=== PATIENT | female | born 1935 | race Caucasian/White ===

== ENCOUNTER 2016-11-01 11:47 | Inpatient (IN) | payer MEDICARE, MEDICAID ==
[~2016-11-01] VITALS: Ht 167.6 cm; Wt 74.0 kg
[~2016-11-01 11:47] MED LIST: ASPI81CH43 PO; Atorvastatin Calcium PO; CAR250T PO; DOCU60SY2 PO; MET25T PO; ONDA4TAB5 PO; PAR20T PO; Pantoprazole Sodium Sesquihydr PO; ROPI1TAB22 PO; SENN8.6C PO; WARF1TAB36 PO
[2016-11-01] MEDS ORDERED: ONDANSETRON HCL 4 MG/2 ML VIAL IV ONE (12:00)
[2016-11-01 12:42] LABS: Basophils # (auto) 0.1 uL; Basophils % (auto) 0.6 % (0.0-2.0); DEFINITIVE VIEW TRANSMISSION; Eosinophils # (auto) 0 uL; Eosinophils % (auto) 0.4 % (0.0-7.0); Hematocrit 25.5 % (36.0-46.0); Hemoglobin 8.1 g/dL (12.2-16.2); Lymphocytes # (auto) 0.5 uL; Lymphocytes % (auto) 6.4 % (10.0-50.0); Mean Corpuscular Hemoglobin 23.5 pg (28.0-32.0); Mean Corpuscular Hgb Conc. 31.8 g/dL (32.0-36.0); Mean Corpuscular Volume 73.8 fL (80.0-100.0); Mean Platelet Volume 9.7 fL (7.4-10.4); Monocytes # (auto) 0.4 uL; Monocytes % (auto) 4.7 % (0.0-12.0); Neutrophils # (auto) 7.5 uL; Neutrophils % (auto) 87.9 % (37.0-80.0); Platelet Count (auto) 166 10^3/uL (140-450); Red Cell Distribution Width 18.3 % (11.6-16.0); White Blood Cell 8.6 10^3/uL (4.4-10.8)
[2016-11-01 12:57] LABS: INR 1.93 (0.9-1.15); Partial Thromboplastin Time 43.2 sec (22.64-33.71); Prothrombin Time 19.9 sec (9.37-12.3)
[2016-11-01 13:00] LABS: Albumin 3.7 g/dL (3.4-5.0); BUN/Creatinine Ratio 24.1; Calcium 8.4 mg/dL (8.5-10.1); Potassium 3.8 mmol/L (3.5-5.1)
[2016-11-01] MEDS ORDERED: PROMETHAZINE HCL 25 MG/ML 1ML IV ONE (13:00)
[2016-11-01 13:02] LABS: Bilirubin, Total 0.7 mg/dL (0.2-1.0); Total Protein 9.2 g/dL (6.4-8.2)
[2016-11-01 13:51] LABS: Urine Bilirubin Negative (Negative); Urine Blood 2+ /uL (Negative); Urine Color Yellow (Yellow); Urine Glucose Normal (Normal); Urine Ketone TRACE (Negative); Urine Mucus FEW (None Seen); Urine Nitrite POSITIVE (Negative); Urine RBC 4 /hpf (0 - 4); Urine Squamous Epithelial Cell FEW /hpf (<5); Urine Urobilinogen Normal (Negative)
[2016-11-01] MEDS ORDERED: cefTRIAXone 1GM/50ML D5W 50 ML IV ONE (14:00)
[2016-11-01] MEDS ORDERED: SODIUM CHLORIDE 0.9% 1,000 ML IV ONE (15:00)
[2016-11-01] MEDS ORDERED: SODIUM CHLORIDE 0.9% 1,000 ML IV SCH (15:02)
[2016-11-01] MEDS ORDERED: LORazepam 0.5 MG TAB PO PRN (15:15)
[2016-11-01] MEDS ORDERED: MORPHINE SULF INJ 2 MG/ML SYRINGE 1ML IV PRN ×2 (15:15)
[2016-11-01] MEDS ORDERED: NITROGLYCERIN 0.4 MG SL TAB SL PRN (15:15)
[2016-11-01] MEDS ORDERED: PANTOPRAZOLE SODIUM 40 MG/10 ML VIAL IV ONE (15:15)
[2016-11-01] MEDS ORDERED: ACETAMINOPHEN 500 MG TAB PO PRN (15:15)
[2016-11-01] MEDS ORDERED: TEMAZEPAM 15 MG CAP PO PRN (15:15)
[2016-11-01 15:25] LABS: Amylase 50 U/L (25-115)
[2016-11-01] MEDS: PROMETHAZINE HCL 25 MG/ML 1ML IV PRN ×4 (15:30→23:24)
[2016-11-01] MEDS ORDERED: PARoxetine 20 MG TAB PO ONE (15:45)
[2016-11-01 20:51] LABS: Hematocrit 41.8 % (36.0-46.0)
[2016-11-01 20:57] LABS: Hemoglobin 13.3 g/dL (12.2-16.2)
[2016-11-01] MEDS: ROPINIROLE 1 MG PO SCH (22:00)
[2016-11-01] MEDS: CARB PO SCH (22:00)
[2016-11-01] MEDS ORDERED: PATIENTS OWN MEDICATION PO SCH ×2 (22:00)
[2016-11-01] MEDS: DOCUSATE SOD 100 MG CAP PO SCH (22:00)
[2016-11-01] MEDS: LEVODOPA PO SCH (22:00)
[2016-11-01] MEDS ORDERED: DOCUSATE SODIUM 100 MG PO SCH (22:00)
[2016-11-01] MEDS: METOPROLOL TARTRATE 25 MG TAB PO SCH (22:00)
[2016-11-01] MEDS ORDERED: LEVODOPA W/CARB 25/100MG TABLET ONE (23:41)
[2016-11-02 01:00] LABS: Hematocrit 42.1 % (36.0-46.0); Hemoglobin 13.3 g/dL (12.2-16.2)
[2016-11-02 06:31] LABS: Basophils # (auto) 0.1 uL; Basophils % (auto) 0.4 % (0.0-2.0); DEFINITIVE VIEW TRANSMISSION; Eosinophils # (auto) 0.2 uL; Eosinophils % (auto) 1.7 % (0.0-7.0); Hematocrit 42.8 % (36.0-46.0); Hemoglobin 13.5 g/dL (12.2-16.2); Lymphocytes # (auto) 1.3 uL; Lymphocytes % (auto) 10.1 % (10.0-50.0); Mean Corpuscular Hemoglobin 23.5 pg (28.0-32.0); Mean Corpuscular Hgb Conc. 31.5 g/dL (32.0-36.0); Mean Corpuscular Volume 74.6 fL (80.0-100.0); Mean Platelet Volume 9.7 fL (7.4-10.4); Monocytes % (auto) 7.8 % (0.0-12.0); Neutrophils # (auto) 10.6 uL; Platelet Count (auto) 275 10^3/uL (140-450); White Blood Cell 13.2 10^3/uL (4.4-10.8)
[2016-11-02 06:55] LABS: Albumin 3.6 g/dL (3.4-5.0); BUN/Creatinine Ratio 28.6; Bilirubin, Total 0.7 mg/dL (0.2-1.0); Calcium 8.7 mg/dL (8.5-10.1); Total Protein 8.4 g/dL (6.4-8.2)
[2016-11-02] MEDS: LEVODOPA PO SCH ×4 (07:45→22:36)
[2016-11-02] MEDS: CARB PO SCH ×4 (07:45→22:36)
[2016-11-02] MEDS: cefTRIAXone 1GM/50ML D5W 50 ML IV SCH (07:51)
[2016-11-02] MEDS: HYDROcodone-ACET 5/325MG TAB PO PRN (08:38)
[2016-11-02] MEDS: PROMETHAZINE HCL 25 MG/ML 1ML IV PRN (09:45)
[2016-11-02 10:24] VITALS: BP 154/61
[2016-11-02] MEDS: PARoxetine 20 MG TAB PO SCH (11:01)
[2016-11-02] MEDS: DOCUSATE SOD 100 MG CAP PO SCH ×2 (11:02→22:00)
[2016-11-02] MEDS: METOPROLOL TARTRATE 25 MG TAB PO SCH ×2 (11:02→22:36)
[2016-11-02] MEDS: PANTOPRAZOLE 40 MG TAB PO SCH (11:02)
[2016-11-02 12:10] VITALS: BP 149/57
[2016-11-02] MEDS: ONDANSETRON HCL 4 MG/2 ML VIAL IV PRN ×2 (15:38→20:46)
[2016-11-02 17:05] VITALS: BP 164/62
[2016-11-02 22:00] VITALS: BP 126/59
[2016-11-02] MEDS ORDERED: ROPINIROLE PO ONE (22:00)
[2016-11-02] MEDS: ROPINIROLE 1 MG PO SCH (22:00)
[2016-11-03] MEDS: ONDANSETRON HCL 4 MG/2 ML VIAL IV PRN ×6 (01:10→21:28)
[2016-11-03] MEDS: CARB PO SCH ×3 (05:01→21:28)
[2016-11-03] MEDS: LEVODOPA PO SCH ×3 (05:01→21:28)
[2016-11-03 05:39] VITALS: BP 144/68
[2016-11-03 06:16] LABS: Basophils # (auto) 0.1 uL; Basophils % (auto) 0.6 % (0.0-2.0); DEFINITIVE VIEW TRANSMISSION; Eosinophils # (auto) 0.1 uL; Eosinophils % (auto) 0.9 % (0.0-7.0); Hematocrit 41.7 % (36.0-46.0); Hemoglobin 13.2 g/dL (12.2-16.2); Lymphocytes # (auto) 1.3 uL; Lymphocytes % (auto) 9.3 % (10.0-50.0); Mean Corpuscular Hemoglobin 23.5 pg (28.0-32.0); Mean Corpuscular Hgb Conc. 31.6 g/dL (32.0-36.0); Mean Corpuscular Volume 74.5 fL (80.0-100.0); Mean Platelet Volume 10.1 fL (7.4-10.4); Monocytes # (auto) 1.1 uL; Monocytes % (auto) 7.5 % (0.0-12.0); Neutrophils # (auto) 11.7 uL; Neutrophils % (auto) 81.7 % (37.0-80.0); Platelet Count (auto) 253 10^3/uL (140-450); Red Cell Distribution Width 18.2 % (11.6-16.0); White Blood Cell 14.3 10^3/uL (4.4-10.8)
[2016-11-03 06:40] LABS: BUN/Creatinine Ratio 38.6; Magnesium 2.7 mg/dL (1.6-2.6); Potassium 3.6 mmol/L (3.5-5.1)
[2016-11-03 08:00] VITALS: BP 161/76
[2016-11-03] MEDS: DOCUSATE SOD 100 MG CAP PO SCH ×2 (09:11→21:29)
[2016-11-03] MEDS: METOPROLOL TARTRATE 25 MG TAB PO SCH ×2 (09:12→21:29)
[2016-11-03] MEDS: PANTOPRAZOLE 40 MG TAB PO SCH (09:12)
[2016-11-03] MEDS: PARoxetine 20 MG TAB PO SCH (09:12)
[2016-11-03] MEDS: cefTRIAXone 1GM/50ML D5W 50 ML IV SCH (10:00)
[2016-11-03] MEDS ORDERED: METOPROLOL TARTRATE 25 MG TAB PO ONE (11:30)
[2016-11-03 12:30] VITALS: BP 149/63
[2016-11-03 12:53] LABS: Partial Thromboplastin Time 32.6 sec (22.64-33.71); Prothrombin Time 11.9 sec (9.37-12.3)
[2016-11-03 12:56] LABS: INR 1.16 (0.9-1.15)
[2016-11-03] MEDS: HYDROcodone-ACET 5/325MG TAB PO PRN (12:56)
[2016-11-03 16:29] VITALS: BP 159/63
[2016-11-03] MEDS ORDERED: WARFARIN SODIUM 2.5 MG TAB PO ONE (17:00)
[2016-11-03 22:00] VITALS: BP 137/71
[2016-11-03] MEDS ORDERED: ATORVASTATIN 20 MG TAB PO SCH (22:00)
[2016-11-03] MEDS ORDERED: ROPINIROLE 4 MG PO SCH (22:00)
[2016-11-04] MEDS: HYDROcodone-ACET 5/325MG TAB PO PRN (01:43)
[2016-11-04] MEDS: ONDANSETRON HCL 4 MG/2 ML VIAL IV PRN ×4 (01:43→15:46)
[2016-11-04] MEDS ORDERED: ALBUMIN 5% 250 ML IV ONE (02:15)
[2016-11-04 05:17] VITALS: BP 86/46
[2016-11-04 05:56] LABS: Basophils # (auto) 0.1 uL; Basophils % (auto) 1.3 % (0.0-2.0); DEFINITIVE VIEW TRANSMISSION; Eosinophils # (auto) 0.2 uL; Eosinophils % (auto) 2.1 % (0.0-7.0); Hematocrit 38.2 % (36.0-46.0); Hemoglobin 12.1 g/dL (12.2-16.2); Lymphocytes # (auto) 1.2 uL; Mean Corpuscular Hemoglobin 23.4 pg (28.0-32.0); Mean Corpuscular Hgb Conc. 31.7 g/dL (32.0-36.0); Mean Corpuscular Volume 73.6 fL (80.0-100.0); Mean Platelet Volume 9.8 fL (7.4-10.4); Monocytes # (auto) 0.8 uL; Monocytes % (auto) 7.3 % (0.0-12.0); Neutrophils # (auto) 8.9 uL; Neutrophils % (auto) 78.3 % (37.0-80.0); Platelet Count (auto) 198 10^3/uL (140-450); Red Cell Distribution Width 18.2 % (11.6-16.0); White Blood Cell 11.4 10^3/uL (4.4-10.8)
[2016-11-04] MEDS: CARB PO SCH ×2 (06:06→15:46)
[2016-11-04] MEDS: LEVODOPA PO SCH ×2 (06:06→15:46)
[2016-11-04 06:12] LABS: INR 1.11 (0.9-1.15); Partial Thromboplastin Time 27.9 sec (22.64-33.71); Prothrombin Time 11.4 sec (9.37-12.3)
[2016-11-04 08:57] VITALS: BP 130/57
[2016-11-04] MEDS: cefTRIAXone 1GM/50ML D5W 50 ML IV SCH (09:25)
[2016-11-04] MEDS: DOCUSATE SOD 100 MG CAP PO SCH (09:25)
[2016-11-04] MEDS: PARoxetine 20 MG TAB PO SCH (09:25)
[2016-11-04] MEDS: PANTOPRAZOLE 40 MG TAB PO SCH (09:26)
[2016-11-04] MEDS: METOPROLOL TARTRATE 25 MG TAB PO SCH (09:26)
[2016-11-04 12:30] VITALS: BP 156/59
[2016-11-04] MEDS ORDERED: ONDA4TAB5 PO (13:19)
[2016-11-04] MEDS ORDERED: CIPR-217 PO (13:19)
[2016-11-04 13:50] VITALS: BP 156/59
[2016-11-04] MEDS ORDERED: WARFARIN SODIUM 2.5 MG TAB PO ONE (17:00)
== END 2016-11-04 18:20 | disposition home health service (06) | DRG 872 ==
LOC: EDBD 11:47 → ER 11:51 → DOU 11:52 → TELE 23:46 → TELE-EAST 11-02 10:18 → EAST 11-04 01:35
PROVIDERS: ADMIT Internal Medicine; ATTEND Internal Medicine
DX: A41.51 Sepsis due to Escherichia coli [E. coli] (principal); N39.0 Urinary tract infection, site not specified; I25.10 Atherosclerotic heart disease of native coronary artery without angina pectoris; G20 Parkinson's disease; E78.5 Hyperlipidemia, unspecified; G25.81 Restless legs syndrome; D35.01 Benign neoplasm of right adrenal gland; D35.02 Benign neoplasm of left adrenal gland; D50.9 Iron deficiency anemia, unspecified; E86.0 Dehydration; I10 Essential (primary) hypertension; K57.30 Diverticulosis of large intestine without perforation or abscess without bleeding; N28.1 Cyst of kidney, acquired; F32.9 Major depressive disorder, single episode, unspecified; F41.9 Anxiety disorder, unspecified; Z90.49 Acquired absence of other specified parts of digestive tract; Z79.899 Other long term (current) drug therapy; Z79.82 Long term (current) use of aspirin; Z90.710 Acquired absence of both cervix and uterus; Z95.0 Presence of cardiac pacemaker; Z95.1 Presence of aortocoronary bypass graft; Z79.01 Long term (current) use of anticoagulants; Z95.2 Presence of prosthetic heart valve; Z88.2 Allergy status to sulfonamides
CPT/HCPCS: 36415; 71010; 74176; 80048; 80053; 80061; 81001; 82150; 82378; 83036; 83615; 83690; 83735; 84443; 84484; 85014; 85018; 85025; 85045; 85049; 85610; 85652; 85730; 86141; 86850; 86880; 86885; 86900; 86901; 87040; 87086; 87088; 87186; 93005; 93306; 94761; 96365; 96366; 96375; C9113; J0696; J2405

== ENCOUNTER 2016-11-06 10:12 | Inpatient (IN) | payer MEDICARE, MEDICAID ==
[~2016-11-06] VITALS: Ht 152.4 cm; Wt 79.9 kg
[~2016-11-06 10:12] MED LIST changes: +CIPR-217 PO
[2016-11-06] MEDS ORDERED: ONDANSETRON HCL 4 MG/2 ML VIAL IV ONE (13:45)
[2016-11-06 14:08] LABS: Basophils # (auto) 0.1 uL; Basophils % (auto) 0.8 % (0.0-2.0); DEFINITIVE VIEW TRANSMISSION; Eosinophils # (auto) 0.2 uL; Eosinophils % (auto) 1.7 % (0.0-7.0); Hematocrit 42.4 % (36.0-46.0); Hemoglobin 13.3 g/dL (12.2-16.2); Lymphocytes # (auto) 1.2 uL; Lymphocytes % (auto) 10.5 % (10.0-50.0); Mean Corpuscular Hemoglobin 23.7 pg (28.0-32.0); Mean Corpuscular Hgb Conc. 31.4 g/dL (32.0-36.0); Mean Corpuscular Volume 75.5 fL (80.0-100.0); Mean Platelet Volume 10.4 fL (7.4-10.4); Monocytes # (auto) 0.8 uL; Monocytes % (auto) 7.2 % (0.0-12.0); Neutrophils # (auto) 9.5 uL; Neutrophils % (auto) 79.8 % (37.0-80.0); Platelet Count (auto) 177 10^3/uL (140-450); Red Cell Distribution Width 16.9 % (11.6-16.0); SUSPECT VIEW TRANSMISSION; White Blood Cell 11.8 10^3/uL (4.4-10.8)
[2016-11-06 14:22] LABS: Albumin 3.9 g/dL (3.4-5.0); BUN/Creatinine Ratio 38.2; Bilirubin, Total 0.6 mg/dL (0.2-1.0); Calcium 8.9 mg/dL (8.5-10.1); Magnesium 2.6 mg/dL (1.6-2.6); Potassium 3.9 mmol/L (3.5-5.1); Total Protein 8.3 g/dL (6.4-8.2)
[2016-11-06] MEDS ORDERED: LACTULOSE 20Gm/30ML SOLN PO PRN (14:45)
[2016-11-06] MEDS ORDERED: NITROGLYCERIN 0.4 MG SL TAB SL PRN (14:45)
[2016-11-06] MEDS ORDERED: TEMAZEPAM 15 MG CAP PO PRN (14:45)
[2016-11-06] MEDS ORDERED: ACETAMINOPHEN 500 MG TAB PO PRN (14:45)
[2016-11-06] MEDS ORDERED: MORPHINE SULF INJ 2 MG/ML SYRINGE 1ML IV PRN ×2 (14:45)
[2016-11-06] MEDS ORDERED: LORazepam 0.5 MG TAB PO PRN (14:45)
[2016-11-06] MEDS ORDERED: ASPirin 81 mg TAB PO ONE (15:00)
[2016-11-06 15:08] LABS: B-Type Natriuretic Peptide 181.36 pg/mL (0-100)
[2016-11-06 15:09] LABS: Temperature: 22.5 C (20.0-25.0)
[2016-11-06] MEDS: SODIUM CHLORIDE 0.9% 1,000 ML IV SCH (15:11)
[2016-11-06] MEDS: ENOXAPARIN SOD 40 MG/0.4 ML SYRINGE SC SCH (15:15)
[2016-11-06 15:19] LABS: Temperature: 22.5 C (20.0-25.0)
[2016-11-06 16:21] LABS: Urine Bilirubin Negative (Negative); Urine Blood TRACE /uL (Negative); Urine Color Yellow (Yellow); Urine Glucose Normal (Normal); Urine Nitrite Negative (Negative); Urine RBC 2 /hpf (0 - 4); Urine Squamous Epithelial Cell FEW /hpf (<5); Urine Urobilinogen Normal (Negative)
[2016-11-06 16:24] LABS: Urine Ketone 3+ (Negative)
[2016-11-06] MEDS: PROMETHAZINE HCL 25 MG/ML 1ML IV PRN (16:43)
[2016-11-06 19:06] VITALS: BP 136/70
[2016-11-06 22:00] VITALS: BP 136/70
[2016-11-06] MEDS ORDERED: LEVODOPA PO SCH (22:00)
[2016-11-06] MEDS: ATORVASTATIN 20 MG TAB PO SCH ×2 (22:00→22:29)
[2016-11-06] MEDS ORDERED: ROPINIROLE 1 MG TABLET PO SCH (22:00)
[2016-11-06] MEDS: DOCUSATE SOD 100 MG CAP PO SCH (22:00)
[2016-11-06] MEDS ORDERED: CARB PO SCH (22:00)
[2016-11-06] MEDS: METOPROLOL TARTRATE 25 MG TAB PO SCH (22:30)
[2016-11-06] MEDS: PANTOPRAZOLE 40 MG TAB PO SCH (22:30)
[2016-11-06] MEDS: CARB PO SCH (22:31)
[2016-11-06] MEDS: LEVODOPA PO SCH (22:31)
[2016-11-06 22:39] LABS: INR 1.64 (0.9-1.15); Prothrombin Time 16.9 sec (9.37-12.3)
[2016-11-07] VITALS (7 sets, daily range): BP systolic 84–171; BP diastolic 37–95
[2016-11-07] MEDS: SODIUM CHLORIDE 0.9% 1,000 ML IV SCH ×2 (04:30→15:21)
[2016-11-07 06:54] LABS: Basophils # (auto) 0 uL; Basophils % (auto) 0.4 % (0.0-2.0); DEFINITIVE VIEW TRANSMISSION; Eosinophils # (auto) 0.3 uL; Eosinophils % (auto) 3.3 % (0.0-7.0); Hematocrit 37.6 % (36.0-46.0); Hemoglobin 11.6 g/dL (12.2-16.2); Lymphocytes # (auto) 1.4 uL; Lymphocytes % (auto) 15.1 % (10.0-50.0); Mean Corpuscular Hemoglobin 24.1 pg (28.0-32.0); Mean Corpuscular Hgb Conc. 30.9 g/dL (32.0-36.0); Mean Corpuscular Volume 78.1 fL (80.0-100.0); Mean Platelet Volume 10.6 fL (7.4-10.4); Monocytes # (auto) 0.8 uL; Monocytes % (auto) 8.3 % (0.0-12.0); Neutrophils # (auto) 6.9 uL; Neutrophils % (auto) 72.9 % (37.0-80.0); Platelet Count (auto) 133 10^3/uL (140-450); Red Cell Distribution Width 17.1 % (11.6-16.0); White Blood Cell 9.4 10^3/uL (4.4-10.8)
[2016-11-07] MEDS: PROMETHAZINE HCL 25 MG/ML 1ML IV PRN ×4 (06:56→22:39)
[2016-11-07] MEDS: PANTOPRAZOLE 40 MG TAB PO SCH ×2 (09:56→21:45)
[2016-11-07] MEDS: PARoxetine 20 MG TAB PO SCH (09:56)
[2016-11-07] MEDS: CARB PO SCH (09:56)
[2016-11-07] MEDS: LEVODOPA PO SCH (09:56)
[2016-11-07] MEDS: ASPirin 81 mg TAB PO SCH (09:57)
[2016-11-07] MEDS: METOPROLOL TARTRATE 25 MG TAB PO SCH ×2 (09:57→21:08)
[2016-11-07] MEDS: DOCUSATE SOD 100 MG CAP PO SCH ×3 (10:00→22:00)
[2016-11-07] MEDS: ENOXAPARIN SOD 40 MG/0.4 ML SYRINGE SC SCH (10:00)
[2016-11-07] MEDS ORDERED: CYANOCOBALAMIN 500 MCG TAB PO ONE (12:45)
[2016-11-07] MEDS ORDERED: WARFARIN SODIUM 2 MG TAB PO ONE (17:00)
[2016-11-07] MEDS: HYDROcodone-ACET 5/325MG TAB PO PRN (18:05)
[2016-11-07] MEDS: ATORVASTATIN 20 MG TAB PO SCH ×2 (21:07→21:08)
[2016-11-07] MEDS: ROPINIROLE 4 MG TABLET PO SCH (21:09)
[2016-11-08] MEDS: SODIUM CHLORIDE 0.9% 1,000 ML IV SCH ×2 (03:45→16:23)
[2016-11-08 05:00] VITALS: BP 157/85
[2016-11-08] MEDS: PROMETHAZINE HCL 25 MG/ML 1ML IV PRN ×2 (05:08→09:14)
[2016-11-08 06:11] LABS: Basophils # (auto) 0.1 uL; Basophils % (auto) 0.8 % (0.0-2.0); DEFINITIVE VIEW TRANSMISSION; Eosinophils # (auto) 0.3 uL; Eosinophils % (auto) 3.1 % (0.0-7.0); Hematocrit 37.8 % (36.0-46.0); Hemoglobin 12.1 g/dL (12.2-16.2); Lymphocytes % (auto) 10.7 % (10.0-50.0); Mean Corpuscular Hemoglobin 23.9 pg (28.0-32.0); Mean Corpuscular Volume 74.8 fL (80.0-100.0); Mean Platelet Volume 10.2 fL (7.4-10.4); Monocytes # (auto) 0.6 uL; Monocytes % (auto) 5.8 % (0.0-12.0); Neutrophils # (auto) 7.7 uL; Neutrophils % (auto) 79.6 % (37.0-80.0); Platelet Count (auto) 159 10^3/uL (140-450); Red Cell Distribution Width 18.6 % (11.6-16.0); White Blood Cell 9.6 10^3/uL (4.4-10.8)
[2016-11-08 06:23] LABS: Partial Thromboplastin Time 30.1 sec (22.64-33.71)
[2016-11-08 06:24] LABS: INR 1.43 (0.9-1.15); Prothrombin Time 14.7 sec (9.37-12.3)
[2016-11-08 06:40] LABS: BUN/Creatinine Ratio 20.8; Calcium 8.4 mg/dL (8.5-10.1); Phosphorus 1.9 mg/dL (2.5-4.90); Potassium 3.2 mmol/L (3.5-5.1)
[2016-11-08] MEDS: CYANOCOBALAMIN 500 MCG TAB PO SCH (09:12)
[2016-11-08] MEDS: PARoxetine 20 MG TAB PO SCH (09:12)
[2016-11-08] MEDS: PANTOPRAZOLE 40 MG TAB PO SCH ×2 (09:12→22:28)
[2016-11-08] MEDS: ASPirin 81 mg TAB PO SCH (09:13)
[2016-11-08] MEDS: DOCUSATE SOD 100 MG CAP PO SCH ×2 (09:13→22:28)
[2016-11-08] MEDS: METOPROLOL TARTRATE 25 MG TAB PO SCH ×2 (09:13→22:29)
[2016-11-08] MEDS: ENOXAPARIN SOD 40 MG/0.4 ML SYRINGE SC SCH (09:14)
[2016-11-08 09:17] VITALS: BP 165/77
[2016-11-08] MEDS: HYDROcodone-ACET 5/325MG TAB PO PRN ×3 (09:27→22:27)
[2016-11-08] MEDS ORDERED: LEVODOPA PO SCH (10:00)
[2016-11-08] MEDS ORDERED: CARB PO SCH (10:00)
[2016-11-08] MEDS ORDERED: POTASSIUM PHOSPHATE 44 MEQ in SODIUM CHL 0.9% 250 ML IV ONE (13:00)
[2016-11-08 13:27] VITALS: BP_SYST 106; BP_SYST 94; BP_SYST 98; BP_DIAS 36; BP_DIAS 54; BP_DIAS 60
[2016-11-08] MEDS ORDERED: WARFARIN SODIUM 2.5 MG TAB PO ONE (17:00)
[2016-11-08 22:00] VITALS: BP 136/64
[2016-11-08] MEDS: ATORVASTATIN 20 MG TAB PO SCH ×2 (22:28→22:32)
[2016-11-08] MEDS: ROPINIROLE 4 MG TABLET PO SCH (22:31)
[2016-11-09] MEDS: HYDROcodone-ACET 5/325MG TAB PO PRN ×2 (04:32→15:11)
[2016-11-09 05:00] VITALS: BP 152/74
[2016-11-09] MEDS: SODIUM CHLORIDE 0.9% 1,000 ML IV SCH ×2 (07:17→18:34)
[2016-11-09 07:21] LABS: BUN/Creatinine Ratio 25.5; Calcium 7.6 mg/dL (8.5-10.1); Magnesium 1.8 mg/dL (1.6-2.6)
[2016-11-09 07:28] LABS: Partial Thromboplastin Time 30.3 sec (22.64-33.71)
[2016-11-09 07:56] LABS: INR 1.76 (0.9-1.15); Prothrombin Time 18.1 sec (9.37-12.3)
[2016-11-09 09:00] VITALS: BP 121/91
[2016-11-09] MEDS: DOCUSATE SOD 100 MG CAP PO SCH (09:06)
[2016-11-09] MEDS: ASPirin 81 mg TAB PO SCH (09:06)
[2016-11-09] MEDS: METOPROLOL TARTRATE 25 MG TAB PO SCH (09:07)
[2016-11-09] MEDS: CYANOCOBALAMIN 500 MCG TAB PO SCH (09:08)
[2016-11-09] MEDS: ENOXAPARIN SOD 40 MG/0.4 ML SYRINGE SC SCH (09:08)
[2016-11-09] MEDS: PANTOPRAZOLE 40 MG TAB PO SCH (09:08)
[2016-11-09] MEDS: PARoxetine 20 MG TAB PO SCH (09:08)
[2016-11-09 13:00] VITALS: BP 132/72
[2016-11-09] MEDS ORDERED: POTASSIUM CHL 20 Meq TABLET PO ONE ×2 (14:15)
[2016-11-09 17:00] VITALS: BP 144/65
[2016-11-09] MEDS ORDERED: WARFARIN SODIUM 2.5 MG TAB PO ONE (17:00)
[2016-11-09 17:12] VITALS: BP 144/65
== END 2016-11-09 19:30 | DRG 312 ==
LOC: EDBD 10:12 → ER 10:15 → TELE 10:16 → TELE-WESTW 18:15
PROVIDERS: ADMIT Internal Medicine; ATTEND Internal Medicine
DX: I95.1 Orthostatic hypotension (principal); R29.6 Repeated falls; G25.81 Restless legs syndrome; E78.5 Hyperlipidemia, unspecified; G20 Parkinson's disease; G93.89 Other specified disorders of brain; H54.7 Unspecified visual loss; I10 Essential (primary) hypertension; I25.10 Atherosclerotic heart disease of native coronary artery without angina pectoris; I48.2 Chronic atrial fibrillation; F32.9 Major depressive disorder, single episode, unspecified; K57.90 Diverticulosis of intestine, part unspecified, without perforation or abscess without bleeding; S62.92XA Unspecified fracture of left hand, initial encounter for closed fracture; Y93.89 Activity, other specified; W19.XXXA Unspecified fall, initial encounter; Y92.89 Other specified places as the place of occurrence of the external cause; Z88.2 Allergy status to sulfonamides; Z79.82 Long term (current) use of aspirin; Z79.899 Other long term (current) drug therapy; Z90.710 Acquired absence of both cervix and uterus; Z79.01 Long term (current) use of anticoagulants; Z86.73 Personal history of transient ischemic attack (TIA), and cerebral infarction without residual deficits; Z95.1 Presence of aortocoronary bypass graft; Z95.2 Presence of prosthetic heart valve; Z98.890 Other specified postprocedural states; Z90.49 Acquired absence of other specified parts of digestive tract
CPT/HCPCS: 36415; 70450; 71010; 73130; 80048; 80053; 81001; 82550; 82607; 82746; 83735; 83880; 84100; 84443; 84484; 85025; 85049; 85610; 85652; 85730; 93005; 93886; 96374; 97001; 97116; 97530; J2405